=== PATIENT | female | born 1955 | race African-American/Black ===

== ENCOUNTER 2021-12-19 06:41 | Emergency (ER) | payer MEDICARE ==
[~2021-12-19] VITALS: Ht 165.1 cm; Wt 109.1 kg
[2021-12-19 06:52] VITALS: TEMP 98.9
[2021-12-19 07:15] LABS: BASO # 0.1 K/mm3 (0.0-0.2); BASO % 0.3 % (0.0-2.0); GRAN # 15.1 K/mm3 (1.4-6.5); GRAN % 86.4 % (42.2-75.2); HEMATOCRIT 41.2 % (37.0-47.0); HEMOGLOBIN 12.5 g/dl (12.5-16.0); LYMPH # 1.1 K/mm3 (1.2-3.4); LYMPH % 6.4 % (20.0-51.0); MEAN CELL VOLUME 76 fl (80.0-100.0); MEAN CORPUSCULAR HEMOGLOBIN 23 pg (27-31); MEAN CORPUSCULAR HGB CONC 30 g/dl (33.0-37.0); MEAN PLATELET VOLUME 10.9 fl (7.4-10.4); MONO # 1.1 K/mm3 (0.1-0.6); MONO % 6.4 % (1.7-9.3); PLATELET COUNT 357 K/mm3 (130-400); RED BLOOD COUNT 5.39 M/mm3 (4.10-5.30); REDCELL DISTRIBUTION WIDTH-CV 16.2 % (11.5-14.5)
[2021-12-19 07:34] LABS: ALBUMIN 4.1 gm/dL (3.4-4.8); BILIRUBIN,TOTAL 0.9 mg/dL (0.2-1.2); CREATININE, serum 1.03 mg/dL (0.57-1.11); TOTAL PROTEIN 8.4 gm/dL (6.2-8.1)
[2021-12-19] MEDS ORDERED: PERCOCET 325 MG1 TA2 PO (11:41)
[2021-12-19] MEDS ORDERED: ZOFRAN ODT4 MG PO (11:41)
[2021-12-19 12:01] VITALS: BP 154/72; PULSE 98
== END 2021-12-19 12:01 | disposition home or self-care (01) ==
LOC: COL.ER 06:41
PROVIDERS: Emergency Medicine
DX: K80.50 Calculus of bile duct without cholangitis or cholecystitis without obstruction (principal); I10 Essential (primary) hypertension; Z90.710 Acquired absence of both cervix and uterus; Z87.891 Personal history of nicotine dependence
CPT/HCPCS: J0360; J2405; J7030; Q9967

== ENCOUNTER → 2022-01-27 | Outpatient (REF) ==
[~2022-01-27] MED LIST: PERCOCET 325 MG1 TA2 PO; ZOFRAN ODT4 MG PO
== END ==
LOC: ZLAB.STJ 20:12
DX: E11.621 Type 2 diabetes mellitus with foot ulcer (principal)

== ENCOUNTER → 2022-01-28 | Outpatient (CLI) | payer MEDICARE ==
[2022-01-28 10:20] LABS: ALBUMIN 3.4 gm/dL (3.4-4.8); BASO % 0.4 % (0.0-2.0); BILIRUBIN,TOTAL 0.5 mg/dL (0.2-1.2); C-REACTIVE PROTEIN 3.42 mg/dL (0.00-0.50); CALCIUM 9.1 mg/dL (8.4-10.2); CREATININE, serum 0.88 mg/dL (0.57-1.11); EOS # 0.2 K/mm3 (0.0-0.7); EOS % 2.8 % (0.0-4.0); HEMATOCRIT 34.7 % (37.0-47.0); HEMOGLOBIN 10.2 g/dl (12.5-16.0); LYMPH # 2.6 K/mm3 (1.2-3.4); LYMPH % 29.9 % (20.0-51.0); MEAN CELL VOLUME 77 fl (80.0-100.0); MEAN CORPUSCULAR HEMOGLOBIN 23 pg (27-31); MEAN CORPUSCULAR HGB CONC 29 g/dl (33.0-37.0); MEAN PLATELET VOLUME 11.6 fl (7.4-10.4); MONO # 0.7 K/mm3 (0.1-0.6); MONO % 8.5 % (1.7-9.3); PLATELET COUNT 310 K/mm3 (130-400); POTASSIUM 4.3 mmol/L (3.5-4.5); REDCELL DISTRIBUTION WIDTH-CV 17.4 % (11.5-14.5); TOTAL PROTEIN 6.5 gm/dL (6.2-8.1)
[2022-01-28 10:21] LABS: ERYTHROCYTE SEDIMENTATION RATE 42 mm/hr (0-30)
== END ==
LOC: ZLAB.STJ 10:03
PROVIDERS: Internal Medicine
DX: Z47.89 Encounter for other orthopedic aftercare (principal); E11.43 Type 2 diabetes mellitus with diabetic autonomic (poly)neuropathy; S82.851G Displaced trimalleolar fracture of right lower leg, subsequent encounter for closed fracture with delayed healing

== ENCOUNTER 2023-09-21 03:52 | Emergency (ER) | payer MEDICARE ==
[~2023-09-21] VITALS: Ht 165.1 cm; Wt 95.9 kg
[~2023-09-21 03:52] MED LIST changes: +AMOXICILLIN 8751 TAB PO; +COREG 6.256.25 MG/TA PO; +HYZAAR 25 MG-101 TAB PO; +LEVEMIR FLEX100 U/ML SQ; +LIPITOR20 MG PO; +MACROBID 1100 MG/CAP PO; +NORVASC 10MG10 MG PO; +NOVOLOG FLEX100 U/ML SQ; +ROXICODONE 55 MG/TAB PO
[2023-09-21 04:09] VITALS: TEMP 98.2
[2023-09-21 04:43] VITALS: BP 166/63; PULSE 71
== END 2023-09-21 04:45 | disposition home or self-care (01) ==
LOC: COL.ER 03:52
DX: K56.41 Fecal impaction (principal)
CPT/HCPCS: J2212